=== PATIENT | male | born 1945 | race African-American/Black ===

== ENCOUNTER 2022-04-16 23:06 | Inpatient (IN) | payer MEDICARE, MEDICAID ==
[~2022-04-16] VITALS: Ht 172.7 cm; Wt 61.5 kg
[~2022-04-16 23:06] MED LIST: ASPI-1497 MT; HYDR-4009 MT
[2022-04-16] MEDS ORDERED: FUROSEMIDE 40MG/4ML VIAL IV ONE (23:15)
[2022-04-16] MEDS ORDERED: ASPIRIN 81MG TABLET PO ONE (23:15)
[2022-04-16 23:51] LABS: CHLORIDE 112 mEq/L (98-107)
[2022-04-16 23:55] LABS: HEMATOCRIT. 33.7 % (42.0-52.0); HEMOGLOBIN. 10.5 g/dL (14.0-18.0); MEAN CORPUSCULAR HEMOGLOBIN 26.4 pg (28.0-32.0); MEAN CORPUSCULAR VOLUME 84.9 fL (80.0-94.0); MEAN PLATELET VOLUME 7.1 fl (7.4-10.4); PLATELET 263 x1000/uL (130-400); RED BLOOD CELL COUNT 3.97 mill/uL (4.7-6.1); RED CELL DISTRIBUTION WIDTH 17.4 % (11.6-14.6)
[2022-04-17] VITALS (7 sets, daily range): BP systolic 121–152; BP diastolic 60–85
[2022-04-17 00:46] LABS: PLATELET ESTIMATE NORMAL
[2022-04-17] MEDS ORDERED: FUROSEMIDE 40MG/4ML VIAL IV NR (02:15)
[2022-04-17] MEDS ORDERED: ASPIRIN 81MG TABLET PO NR (02:15)
[2022-04-17] MEDS ORDERED: FUROSEMIDE 40MG/4ML VIAL IVP NR (09:30)
[2022-04-17] MEDS ORDERED: METOLAZONE 10MG TABLET PO NR (09:30)
[2022-04-17] MEDS ORDERED: ONDANSETRON HCL 4MG/2ML INJ IV PRN (09:45)
[2022-04-17] MEDS ORDERED: IPRATROPIUM/ALBUTEROL 0.5-3(2.5)MG/3ML NEB HHN PRN (09:45)
[2022-04-17] MEDS ORDERED: ACETAMINOPHEN 325MG TABLET PO PRN ×2 (09:45)
[2022-04-17] MEDS ORDERED: GUAIFENESIN 200MG/10ML SUGAR FREE UDC PO PRN (09:45)
[2022-04-17] MEDS ORDERED: DIPHENHYDRAMINE 50MG/ML VIAL IV PRN (09:45)
[2022-04-17] MEDS ORDERED: MAGNESIUM/ALUMINUM HYDROXIDE/SIMETHICONE 30ML UDC PO PRN (09:45)
[2022-04-17] MEDS ORDERED: ZOLPIDEM TARTRATE 5MG TABLET PO PRN (09:45)
[2022-04-17] MEDS ORDERED: CLONIDINE 0.1MG TABLET PO PRN (09:45)
[2022-04-17 11:13] LABS: BG BASE EXCESS -1.6 mmol/L (-2.0-2.0); BG CARBOXYHEMOGLOBIN 1.2 % (0.5-1.5); BG DEOXYHEMOGLOBIN 0.5 % (0.0-5.0); BG FRACTION INSPIRED OXYGEN 40; BG HCO3 ACT 22.7 mmol/L (22.0-26.0); BG METHEMOGLOBIN 0.3 % (0.0-1.5); BG OXYGEN SATURATION 99.5 % (92.0-98.5); BG PCO2 36.6 mmHg (35.0-45.0); BG PO2 164.5 mmHg (75.0-100.0); BG SAMPLE SITE RIGHT RADIAL; BG TOTAL HEMOGLOBIN 10.9 g/dL (12.0-18.0); BG TOTAL RESPIRATORY RATE 21 b/min; BG VENT MODE MASK - BIPAP
[2022-04-17] MEDS: SPIRONOLACTONE 25MG TABLET PO SCH (11:16)
[2022-04-17] MEDS: LOSARTAN POTASSIUM 25 MG TABLET PO SCH (13:02)
[2022-04-17] MEDS: ENOXAPARIN 40MG/0.4ML SYR SUBCUT SCH (13:06)
[2022-04-17] MEDS: SILDENAFIL CITRATE 20MG TABLET PO SCH ×2 (15:16→21:59)
[2022-04-17] MEDS: NICOTINE 14MG PATCH TD SCH (15:16)
[2022-04-17] MEDS: IPRATROPIUM/ALBUTEROL 0.5-3(2.5)MG/3ML NEB HHN SCH ×2 (17:17→20:00)
[2022-04-17] MEDS: BUDESONIDE 0.5MG/2ML NEB HHN SCH ×2 (17:17→21:06)
[2022-04-17 18:17] LABS: CLARITY URINE CLEAR (CLEAR); COLOR URINE YELLOW (YELLOW); KETONES URINE NEGATIVE (NEGATIVE); LEUKOCYTE ESTERASE URINE 3+ (NEGATIVE); NITRITE URINE NEGATIVE (NEGATIVE); OCCULT BLOOD URINE 2+ (NEGATIVE); PROTEIN URINE NEGATIVE (NEGATIVE); SPECIFIC GRAVITY URINE 1.007 (1.005-1.030); UROBILINOGEN URINE 0.2 E.U./dL (0.2-1.0)
[2022-04-17 18:33] LABS: *AMPHETAMINES SCREEN URINE NEGATIVE (NEGATIVE); *BARBITURATES SCREEN URINE NEGATIVE (NEGATIVE); *BENZODIAZEPINES SCREEN URINE NEGATIVE (NEGATIVE); *COCAINE SCREEN URINE NEGATIVE (NEGATIVE); CANNABINOID URINE SCREEN NEGATIVE (NEGATIVE); METHADONE URINE SCREEN NEGATIVE (NEGATIVE); OPIATES URINE SCREEN PRESUMTIVE POSITIVE (NEGATIVE); PHENCYCLIDINE URINE SCREEN NEGATIVE (NEGATIVE)
[2022-04-17] MEDS: CARVEDILOL 3.125 MG TABLET PO SCH (22:00)
[2022-04-17] MEDS: FAMOTIDINE 20MG TABLET PO SCH (22:00)
[2022-04-17] MEDS: SODIUM CHLORIDE 0.9% INJ 3ML FLUSH IVF SCH ×2 (22:00→22:01)
[2022-04-18] VITALS (14 sets, daily range): BP systolic 123–156; BP diastolic 68–98
[2022-04-18] MEDS: IPRATROPIUM/ALBUTEROL 0.5-3(2.5)MG/3ML NEB HHN SCH ×6 (04:48→20:37)
[2022-04-18] MEDS: SODIUM CHLORIDE 0.9% INJ 3ML FLUSH IVF SCH ×3 (06:00→21:15)
[2022-04-18] MEDS: SILDENAFIL CITRATE 20MG TABLET PO SCH ×3 (06:11→21:15)
[2022-04-18 07:57] LABS: CHLORIDE 109 mEq/L (98-107); PHOSPHORUS 3.4 mg/dL (2.5-4.9)
[2022-04-18] MEDS: FUROSEMIDE 40MG/4ML VIAL IVP SCH (09:11)
[2022-04-18] MEDS: NICOTINE 14MG PATCH TD SCH (09:12)
[2022-04-18] MEDS: CARVEDILOL 3.125 MG TABLET PO SCH ×2 (09:12→21:15)
[2022-04-18] MEDS: SPIRONOLACTONE 25MG TABLET PO SCH (09:12)
[2022-04-18] MEDS: METOLAZONE 10MG TABLET PO SCH (09:12)
[2022-04-18] MEDS: LOSARTAN POTASSIUM 25 MG TABLET PO SCH (09:12)
[2022-04-18] MEDS: ASPIRIN 81MG EC TABLET PO SCH (09:12)
[2022-04-18] MEDS ORDERED: LIDOCAINE HCL/PF 1% 10 MG/ML 5ML VIAL ONE (09:34)
[2022-04-18 09:50] LABS: HEMATOCRIT. 35.9 % (42.0-52.0); MEAN CORPUSCULAR VOLUME 85.4 fL (80.0-94.0); MEAN PLATELET VOLUME 7.2 fl (7.4-10.4); PLATELET 237 x1000/uL (130-400); RED BLOOD CELL COUNT 4.21 mill/uL (4.7-6.1); RED CELL DISTRIBUTION WIDTH 17.8 % (11.6-14.6)
[2022-04-18] MEDS ORDERED: IOHEXOL-350 100 ML BOTTLE ONE (10:10)
[2022-04-18] MEDS: ENOXAPARIN 40MG/0.4ML SYR SUBCUT SCH (11:26)
[2022-04-18] MEDS: BUDESONIDE 0.5MG/2ML NEB HHN SCH ×2 (12:41→20:38)
[2022-04-18 14:05] LABS: PLATELET ESTIMATE NORMAL
[2022-04-18] MEDS: POTASSIUM CHLORIDE 20MEQ TABLET SR PO SCH (14:08)
[2022-04-18] MEDS: FAMOTIDINE 20MG TABLET PO SCH (21:14)
[2022-04-19] VITALS (12 sets, daily range): BP systolic 105–157; BP diastolic 73–99
[2022-04-19] MEDS: IPRATROPIUM/ALBUTEROL 0.5-3(2.5)MG/3ML NEB HHN SCH ×6 (00:21→21:48)
[2022-04-19] MEDS: SODIUM CHLORIDE 0.9% INJ 3ML FLUSH IVF SCH ×3 (06:04→22:24)
[2022-04-19] MEDS: SILDENAFIL CITRATE 20MG TABLET PO SCH ×3 (06:04→22:23)
[2022-04-19] MEDS: FUROSEMIDE 40MG/4ML VIAL IVP SCH (08:16)
[2022-04-19] MEDS: CARVEDILOL 3.125 MG TABLET PO SCH ×2 (08:16→22:22)
[2022-04-19] MEDS: METOLAZONE 10MG TABLET PO SCH (08:16)
[2022-04-19] MEDS: LOSARTAN POTASSIUM 25 MG TABLET PO SCH (08:16)
[2022-04-19] MEDS: NICOTINE 14MG PATCH TD SCH (08:16)
[2022-04-19] MEDS: ASPIRIN 81MG EC TABLET PO SCH (08:17)
[2022-04-19] MEDS: SPIRONOLACTONE 25MG TABLET PO SCH (08:17)
[2022-04-19] MEDS: POTASSIUM CHLORIDE 20MEQ TABLET SR PO SCH (08:17)
[2022-04-19] MEDS: BUDESONIDE 0.5MG/2ML NEB HHN SCH ×2 (09:51→21:48)
[2022-04-19 10:15] LABS: CHLORIDE 97 mEq/L (98-107)
[2022-04-19 10:25] LABS: HEMATOCRIT 36.8 % (42.0-52.0); HEMOGLOBIN 11.6 g/dL (14.0-18.0); MEAN CORPUSCULAR HEMOGLOBIN 26.3 pg (28.0-32.0); MEAN CORPUSCULAR VOLUME 83.1 fL (80.0-94.0); PLATELET 363 x1000/uL (130-400); RED BLOOD CELL COUNT 4.42 mill/uL (4.7-6.1)
[2022-04-19] MEDS: ENOXAPARIN 40MG/0.4ML SYR SUBCUT SCH (11:20)
[2022-04-19 14:52] LABS: BG BASE EXCESS 11.4 mmol/L (-2.0-2.0); BG CARBOXYHEMOGLOBIN 1.2 % (0.5-1.5); BG DEOXYHEMOGLOBIN 17.1 % (0.0-5.0); BG FRACTION INSPIRED OXYGEN 21; BG HCO3 ACT 35.7 mmol/L (22.0-26.0); BG METHEMOGLOBIN 1.3 % (0.0-1.5); BG OXYGEN SATURATION 82.5 % (92.0-98.5); BG OXYHEMOGLOBIN 80.4 % (94.0-97.0); BG PCO2 45.3 mmHg (35.0-45.0); BG PH 7.514 (7.350-7.450); BG PO2 45.1 mmHg (75.0-100.0); BG SAMPLE SITE RIGHT RADIAL; BG TOTAL HEMOGLOBIN 12.7 g/dL (12.0-18.0); BG VENT MODE ROOM AIR
[2022-04-19] MEDS: FAMOTIDINE 20MG TABLET PO SCH (22:23)
[2022-04-20 00:01] VITALS: BP 149/91
[2022-04-20] MEDS: IPRATROPIUM/ALBUTEROL 0.5-3(2.5)MG/3ML NEB HHN SCH ×3 (01:31→08:11)
[2022-04-20 02:00] VITALS: BP 130/88
[2022-04-20 04:59] VITALS: BP 130/84
[2022-04-20] MEDS: SODIUM CHLORIDE 0.9% INJ 3ML FLUSH IVF SCH (05:47)
[2022-04-20] MEDS: SILDENAFIL CITRATE 20MG TABLET PO SCH (05:48)
[2022-04-20 06:00] VITALS: BP 102/89
[2022-04-20 08:00] VITALS: BP 130/81
[2022-04-20] MEDS: BUDESONIDE 0.5MG/2ML NEB HHN SCH (08:11)
[2022-04-20] MEDS: SPIRONOLACTONE 25MG TABLET PO SCH (09:00)
[2022-04-20] MEDS: CARVEDILOL 3.125 MG TABLET PO SCH (09:00)
[2022-04-20] MEDS: ASPIRIN 81MG EC TABLET PO SCH (09:00)
[2022-04-20] MEDS: LOSARTAN POTASSIUM 25 MG TABLET PO SCH (09:00)
[2022-04-20] MEDS: NICOTINE 14MG PATCH TD SCH (09:00)
[2022-04-20] MEDS ORDERED: FUROSEMIDE 40MG TABLET PO SCH (09:00)
[2022-04-20] MEDS: POTASSIUM CHLORIDE 20MEQ TABLET SR PO SCH (09:00)
[2022-04-20] MEDS: ENOXAPARIN 40MG/0.4ML SYR SUBCUT SCH (11:00)
[2022-04-20] MEDS: METOLAZONE 10MG TABLET PO SCH (11:16)
== END 2022-04-20 10:52 | disposition left against medical advice (07) | DRG 291 ==
LOC: ER 23:06 → MICUSO 04-17 03:40 → 3WST 04-17 17:29
PROVIDERS: ADMIT Internal Medicine; ATTEND Internal Medicine
PROC: 5A09357 Assistance with Respiratory Ventilation, Less than 24 Consecutive Hours, Continuous Positive Airway Pressure (ICD-10-PCS; 2022-04-17)
PROC: 02HV33Z Insertion of Infusion Device into Superior Vena Cava, Percutaneous Approach (ICD-10-PCS; principal; 2022-04-18)
PROC: B518ZZA Fluoroscopy of Superior Vena Cava, Guidance (ICD-10-PCS; 2022-04-18)
PROC: B548ZZA Ultrasonography of Superior Vena Cava, Guidance (ICD-10-PCS; 2022-04-18)
DX: I11.0 Hypertensive heart disease with heart failure (principal); J96.01 Acute respiratory failure with hypoxia; I50.23 Acute on chronic systolic (congestive) heart failure; J43.9 Emphysema, unspecified; I27.20 Pulmonary hypertension, unspecified; I34.0 Nonrheumatic mitral (valve) insufficiency; I36.1 Nonrheumatic tricuspid (valve) insufficiency; F17.210 Nicotine dependence, cigarettes, uncomplicated; D64.9 Anemia, unspecified; E11.9 Type 2 diabetes mellitus without complications; Z20.822 Contact with and (suspected) exposure to COVID-19; I50.82 Biventricular heart failure; I42.9 Cardiomyopathy, unspecified; Z53.29 Procedure and treatment not carried out because of patient's decision for other reasons; Z79.891 Long term (current) use of opiate analgesic; Z79.899 Other long term (current) drug therapy; Z82.49 Family history of ischemic heart disease and other diseases of the circulatory system; R91.8 Other nonspecific abnormal finding of lung field
CPT/HCPCS: 36415; 36573; 36600; 71045; 71275; 80048; 80053; 80305; 81003; 82375; 82378; 82805; 83735; 83880; 84100; 84484; 85025; 85027; 87426; 93005; 94640; 94660; 97162; 99291; A4565; C1725; J1650; J1940; J3490; J7626; Q9967; A4315

== ENCOUNTER 2022-06-13 21:28 | Emergency (ER) | payer MEDICARE, MEDICAID ==
[~2022-06-13] VITALS: Ht 170.2 cm; Wt 69.0 kg
[2022-06-13] MEDS ORDERED: ASPIRIN 81MG TABLET PO ONE (23:30)
[2022-06-13 23:52] LABS: BASOPHILS % 0.7 % (0.0-2.0); EOSINOPHILS % 0.2 % (0.0-5.0); HEMATOCRIT. 34.4 % (42.0-52.0); HEMOGLOBIN. 10.7 g/dL (14.0-18.0); LYMPHOCYTES % 40.6 % (20.0-50.0); MEAN CORPUSCULAR HEMOGLOBIN 25.6 pg (28.0-32.0); MEAN CORPUSCULAR VOLUME 82.7 fL (80.0-94.0); MEAN PLATELET VOLUME 6.9 fl (7.4-10.4); MONOCYTES % 13.2 % (2.0-8.0); NEUTROPHILS % 45.3 % (40.0-76.0); PLATELET 352 x1000/uL (130-400); RED BLOOD CELL COUNT 4.16 mill/uL (4.7-6.1); RED CELL DISTRIBUTION WIDTH 19.6 % (11.6-14.6)
[2022-06-13 23:57] LABS: CHLORIDE 108 mEq/L (98-107)
[2022-06-14] MEDS ORDERED: FUROSEMIDE 40MG TABLET PO NR (01:45)
[2022-06-14 02:38] VITALS: BP 112/78
[2022-06-14] MEDS ORDERED: SACU1TAB PO (13:47)
[2022-06-14] MEDS ORDERED: CARV6.2548 MT (13:47)
[2022-06-14] MEDS ORDERED: DAPA10TA MT (13:47)
[2022-06-14] MEDS ORDERED: FURO-151 MT (13:47)
== END 2022-06-14 02:38 | disposition home or self-care (01) ==
LOC: ER 21:28
DX: R53.1 Weakness (principal); I50.9 Heart failure, unspecified; I11.0 Hypertensive heart disease with heart failure; E11.9 Type 2 diabetes mellitus without complications; F12.10 Cannabis abuse, uncomplicated
CPT/HCPCS: 36415; 80053; 83880; 84484; 85025; 93005; 99284

== ENCOUNTER 2022-06-14 03:29 | Inpatient (IN) | payer MEDICARE, MEDICAID ==
[~2022-06-14] VITALS: Ht 167.6 cm; Wt 56.2 kg
[2022-06-14] MEDS ORDERED: ACETAMINOPHEN 325MG TABLET PO ONE (06:00)
[2022-06-14] MEDS ORDERED: FUROSEMIDE 40MG/4ML VIAL IVP ONE (06:00)
[2022-06-14 06:25] LABS: CHLORIDE 109 mEq/L (98-107)
[2022-06-14 06:26] LABS: BASOPHILS % 1.1 % (0.0-2.0); EOSINOPHILS % 0.3 % (0.0-5.0); HEMATOCRIT. 45.1 % (42.0-52.0); HEMOGLOBIN. 13.9 g/dL (14.0-18.0); LYMPHOCYTES % 42.2 % (20.0-50.0); MEAN CORPUSCULAR HEMOGLOBIN 25.4 pg (28.0-32.0); MEAN CORPUSCULAR VOLUME 82.1 fL (80.0-94.0); MEAN PLATELET VOLUME 7.2 fl (7.4-10.4); NEUTROPHILS % 43.4 % (40.0-76.0); PLATELET 331 x1000/uL (130-400); RED BLOOD CELL COUNT 5.49 mill/uL (4.7-6.1); RED CELL DISTRIBUTION WIDTH 20.2 % (11.6-14.6)
[2022-06-14] MEDS ORDERED: ONDANSETRON HCL 4MG/2ML INJ IV PRN (09:15)
[2022-06-14] MEDS ORDERED: ACETAMINOPHEN 325MG TABLET PO PRN (09:15)
[2022-06-14] MEDS ORDERED: GUAIFENESIN 200MG/10ML SUGAR FREE UDC PO PRN (09:15)
[2022-06-14] MEDS ORDERED: MAGNESIUM/ALUMINUM HYDROXIDE/SIMETHICONE 30ML UDC PO PRN (09:15)
[2022-06-14] MEDS ORDERED: DOCUSATE SODIUM 100MG CAPSULE PO PRN (09:15)
[2022-06-14] MEDS ORDERED: IPRATROPIUM/ALBUTEROL 0.5-3(2.5)MG/3ML NEB NEB PRN (09:15)
[2022-06-14] MEDS ORDERED: DIPHENHYDRAMINE 50MG/ML VIAL IV PRN (09:15)
[2022-06-14] MEDS ORDERED: NA PHOS,M-B/NA PHOS,DI-BA ENEMA 118ML PR PRN (09:15)
[2022-06-14 10:03] VITALS: BP 140/93
[2022-06-14] MEDS ORDERED: NALOXONE HCL 0.4MG/ML VIAL IV PRN (10:15)
[2022-06-14] MEDS: MORPHINE SULFATE 2 MG/ML CPJ (NOT FOR IM USE) IV PRN (10:19)
[2022-06-14] MEDS ORDERED: ENOXAPARIN 40MG/0.4ML SYR SUBCUT SCH (11:00)
[2022-06-14 12:00] VITALS: BP 140/93
[2022-06-14] MEDS ORDERED: FURO-151 MT (13:47)
[2022-06-14] MEDS ORDERED: SACU1TAB PO (13:47)
[2022-06-14] MEDS ORDERED: DAPA10TA MT (13:47)
[2022-06-14] MEDS ORDERED: CARV6.2548 MT (13:47)
[2022-06-14] MEDS ORDERED: ENOXAPARIN 30MG/0.3ML SYR SUBCUT SCH (14:45)
[2022-06-14] MEDS: NICOTINE 21MG PATCH TD SCH (15:20)
[2022-06-14 16:00] VITALS: BP 142/86
[2022-06-14 16:27] LABS: CLARITY URINE CLEAR (CLEAR); COLOR URINE YELLOW (YELLOW); KETONES URINE NEGATIVE (NEGATIVE); LEUKOCYTE ESTERASE URINE 3+ (NEGATIVE); NITRITE URINE NEGATIVE (NEGATIVE); OCCULT BLOOD URINE 1+ (NEGATIVE); PROTEIN URINE TRACE (NEGATIVE)
[2022-06-14 16:50] LABS: *AMPHETAMINES SCREEN URINE NEGATIVE (NEGATIVE); *BARBITURATES SCREEN URINE NEGATIVE (NEGATIVE); *BENZODIAZEPINES SCREEN URINE NEGATIVE (NEGATIVE); *COCAINE SCREEN URINE NEGATIVE (NEGATIVE); CANNABINOID URINE SCREEN NEGATIVE (NEGATIVE); METHADONE URINE SCREEN NEGATIVE (NEGATIVE); OPIATES URINE SCREEN PRESUMTIVE POSITIVE (NEGATIVE); PHENCYCLIDINE URINE SCREEN NEGATIVE (NEGATIVE)
[2022-06-14 20:07] VITALS: BP 151/97
[2022-06-14 23:32] VITALS: BP 145/94
[2022-06-15] MEDS: IPRATROPIUM/ALBUTEROL 0.5-3(2.5)MG/3ML NEB HHN SCH ×4 (02:57→21:26)
[2022-06-15 04:00] VITALS: BP 144/92
[2022-06-15 08:00] VITALS: BP 134/88
[2022-06-15] MEDS: NICOTINE 21MG PATCH TD SCH (08:21)
[2022-06-15] MEDS: FUROSEMIDE 40MG/4ML VIAL IV SCH (08:22)
[2022-06-15] MEDS: ASPIRIN 81MG EC TABLET PO SCH (08:22)
[2022-06-15] MEDS: SPIRONOLACTONE 25MG TABLET PO SCH (08:22)
[2022-06-15] MEDS ORDERED: ENOXAPARIN 30MG/0.3ML SYR SUBCUT SCH (09:00)
[2022-06-15] MEDS: HYDROCODONE/ACETAMINOPHEN 5/325MG TABLET PO PRN ×2 (09:07→22:21)
[2022-06-15 12:00] VITALS: BP 139/88
[2022-06-15] MEDS: CEFTRIAXONE 1,000 MG in DEXTROSE 5% WATER 50 ML IV SCH (14:17)
[2022-06-15 16:00] VITALS: BP 129/72
[2022-06-15 20:00] VITALS: BP 139/86
[2022-06-16] VITALS: BP 143/92
[2022-06-16] MEDS: HYDROCODONE/ACETAMINOPHEN 5/325MG TABLET PO PRN (02:11)
[2022-06-16] MEDS: IPRATROPIUM/ALBUTEROL 0.5-3(2.5)MG/3ML NEB HHN SCH ×3 (02:15→21:01)
[2022-06-16 04:00] VITALS: BP 141/97
[2022-06-16 06:12] LABS: BASOPHILS % 0.2 % (0.0-2.0); EOSINOPHILS % 0.2 % (0.0-5.0); HEMATOCRIT. 36.2 % (42.0-52.0); HEMOGLOBIN. 11.5 g/dL (14.0-18.0); LYMPHOCYTES % 18.7 % (20.0-50.0); MEAN CORPUSCULAR HEMOGLOBIN 26.8 pg (28.0-32.0); MEAN CORPUSCULAR VOLUME 84.5 fL (80.0-94.0); MEAN PLATELET VOLUME 7.4 fl (7.4-10.4); MONOCYTES % 8.5 % (2.0-8.0); NEUTROPHILS % 72.4 % (40.0-76.0); PLATELET 318 x1000/uL (130-400); RED BLOOD CELL COUNT 4.29 mill/uL (4.7-6.1); RED CELL DISTRIBUTION WIDTH 19.8 % (11.6-14.6)
[2022-06-16 06:29] LABS: CHLORIDE 104 mEq/L (98-107)
[2022-06-16 08:00] VITALS: BP 145/97
[2022-06-16] MEDS: SPIRONOLACTONE 25MG TABLET PO SCH (08:13)
[2022-06-16] MEDS: FUROSEMIDE 40MG/4ML VIAL IV SCH (08:13)
[2022-06-16] MEDS: ASPIRIN 81MG EC TABLET PO SCH (08:13)
[2022-06-16] MEDS: ENOXAPARIN 40MG/0.4ML SYR SUBCUT SCH (08:14)
[2022-06-16] MEDS: MORPHINE SULFATE 2 MG/ML CPJ (NOT FOR IM USE) IV PRN ×3 (08:14→20:47)
[2022-06-16] MEDS: NICOTINE 21MG PATCH TD SCH (08:14)
[2022-06-16 12:00] VITALS: BP 152/102
[2022-06-16] MEDS: CEFTRIAXONE 1,000 MG in DEXTROSE 5% WATER 50 ML IV SCH (14:10)
[2022-06-16 16:00] VITALS: BP 149/96
[2022-06-16 20:00] VITALS: BP 127/99
[2022-06-17] VITALS: BP 145/93
[2022-06-17] MEDS: IPRATROPIUM/ALBUTEROL 0.5-3(2.5)MG/3ML NEB HHN SCH ×4 (01:21→21:05)
[2022-06-17 04:00] VITALS: BP 142/95
[2022-06-17 06:48] LABS: HEMATOCRIT. 38.6 % (42.0-52.0); HEMOGLOBIN. 11.9 g/dL (14.0-18.0); MEAN CORPUSCULAR HEMOGLOBIN 26.7 pg (28.0-32.0); MEAN PLATELET VOLUME 7.6 fl (7.4-10.4); PLATELET 309 x1000/uL (130-400); RED BLOOD CELL COUNT 4.43 mill/uL (4.7-6.1); RED CELL DISTRIBUTION WIDTH 19.9 % (11.6-14.6)
[2022-06-17 07:33] LABS: CHLORIDE 99 mEq/L (98-107)
[2022-06-17 08:00] VITALS: BP 156/105
[2022-06-17] MEDS: ENOXAPARIN 40MG/0.4ML SYR SUBCUT SCH (08:33)
[2022-06-17] MEDS: FUROSEMIDE 40MG/4ML VIAL IV SCH (08:33)
[2022-06-17] MEDS: ASPIRIN 81MG EC TABLET PO SCH (08:33)
[2022-06-17] MEDS: SPIRONOLACTONE 25MG TABLET PO SCH (08:33)
[2022-06-17] MEDS: NICOTINE 21MG PATCH TD SCH (08:34)
[2022-06-17] MEDS: CLONIDINE 0.1MG TABLET PO PRN (08:35)
[2022-06-17] MEDS: MORPHINE SULFATE 2 MG/ML CPJ (NOT FOR IM USE) IV PRN ×3 (08:46→22:09)
[2022-06-17 12:00] VITALS: BP 153/102
[2022-06-17] MEDS ORDERED: AMLODIPINE 5MG TABLET PO SCH (12:00)
[2022-06-17] MEDS ORDERED: POTASSIUM CHLORIDE 20MEQ TABLET SR PO NR (12:00)
[2022-06-17] MEDS: CEFTRIAXONE 1,000 MG in DEXTROSE 5% WATER 50 ML IV SCH (15:03)
[2022-06-17 15:38] LABS: PLATELET ESTIMATE NORMAL
[2022-06-17 16:00] VITALS: BP 157/90
[2022-06-17 20:00] VITALS: BP 148/98
[2022-06-18] VITALS: BP 151/103
[2022-06-18] MEDS: CLONIDINE 0.1MG TABLET PO PRN (00:53)
[2022-06-18] MEDS: IPRATROPIUM/ALBUTEROL 0.5-3(2.5)MG/3ML NEB HHN SCH (02:11)
[2022-06-18 04:00] VITALS: BP 146/96
[2022-06-18 06:48] LABS: BASOPHILS % 0.2 % (0.0-2.0); HEMATOCRIT. 38.7 % (42.0-52.0); HEMOGLOBIN. 12.2 g/dL (14.0-18.0); LYMPHOCYTES % 19.5 % (20.0-50.0); MEAN CORPUSCULAR HEMOGLOBIN 26.4 pg (28.0-32.0); MEAN CORPUSCULAR VOLUME 83.5 fL (80.0-94.0); MEAN PLATELET VOLUME 7.7 fl (7.4-10.4); MONOCYTES % 11.4 % (2.0-8.0); NEUTROPHILS % 68.9 % (40.0-76.0); PLATELET 314 x1000/uL (130-400); RED BLOOD CELL COUNT 4.64 mill/uL (4.7-6.1); RED CELL DISTRIBUTION WIDTH 19.6 % (11.6-14.6)
[2022-06-18 07:09] LABS: CHLORIDE 101 mEq/L (98-107)
[2022-06-18 08:00] VITALS: BP 147/90
[2022-06-18 08:14] VITALS: BP 147/90
[2022-06-18] MEDS ORDERED: FUROSEMIDE 40MG TABLET PO SCH (09:00)
== END 2022-06-18 08:50 | disposition home or self-care (01) | DRG 871 ==
LOC: ER 03:29 → 8WST 08:38 → EDBEDREQTM 08:43 → EDBEDREQ 08:43 → ENRESERV 08:53
PROVIDERS: ADMIT Internal Medicine; ATTEND Internal Medicine
DX: A41.9 Sepsis, unspecified organism (principal); I50.23 Acute on chronic systolic (congestive) heart failure; J96.00 Acute respiratory failure, unspecified whether with hypoxia or hypercapnia; N39.0 Urinary tract infection, site not specified; I27.20 Pulmonary hypertension, unspecified; J44.9 Chronic obstructive pulmonary disease, unspecified; I11.0 Hypertensive heart disease with heart failure; E11.9 Type 2 diabetes mellitus without complications; I16.0 Hypertensive urgency; D64.9 Anemia, unspecified; F17.210 Nicotine dependence, cigarettes, uncomplicated; I08.3 Combined rheumatic disorders of mitral, aortic and tricuspid valves; I50.82 Biventricular heart failure; Z53.29 Procedure and treatment not carried out because of patient's decision for other reasons; N50.89 Other specified disorders of the male genital organs; M79.89 Other specified soft tissue disorders; F12.90 Cannabis use, unspecified, uncomplicated; R91.1 Solitary pulmonary nodule; Z82.49 Family history of ischemic heart disease and other diseases of the circulatory system; Z79.82 Long term (current) use of aspirin; Z71.6 Tobacco abuse counseling; Z91.19 Patient's noncompliance with other medical treatment and regimen
CPT/HCPCS: 36415; 71045; 80048; 80053; 80305; 81003; 83880; 84484; 85025; 93005; 93306; 94640; 99284; 99285; J0696; J1650; J1940; J2270; J7060

== ENCOUNTER 2022-09-30 12:31 | Inpatient (IN) | payer MEDICARE, MEDICAID ==
[~2022-09-30] VITALS: Ht 167.6 cm; Wt 62.6 kg
[~2022-09-30 12:31] MED LIST changes: +CARV6.2548 MT; +DAPA10TA MT; +FURO-151 MT; +SACU1TAB PO
[2022-09-30] MEDS ORDERED: NITROGLYCERIN 0.4MG TABLET SL SL PRN (14:15)
[2022-09-30] MEDS ORDERED: FUROSEMIDE 40MG/4ML VIAL IVP ONE (14:15)
[2022-09-30] MEDS ORDERED: PREDNISONE 20MG TABLET PO STA (14:15)
[2022-09-30 14:34] LABS: HEMATOCRIT. 27.5 % (42.0-52.0); HEMOGLOBIN. 8.5 g/dL (14.0-18.0); MEAN CORPUSCULAR HEMOGLOBIN 25.9 pg (28.0-32.0); MEAN CORPUSCULAR VOLUME 83.4 fL (80.0-94.0); MEAN PLATELET VOLUME 7.3 fl (7.4-10.4); PLATELET 177 x1000/uL (130-400); RED CELL DISTRIBUTION WIDTH 18.5 % (11.6-14.6)
[2022-09-30 14:47] LABS: CHLORIDE 105 mEq/L (98-107)
[2022-09-30 16:41] LABS: PLATELET ESTIMATE NORMAL
[2022-09-30] MEDS ORDERED: ACETAMINOPHEN 325MG TABLET PO PRN (19:30)
[2022-09-30] MEDS ORDERED: DOCUSATE SODIUM 100MG CAPSULE PO PRN (19:30)
[2022-09-30] MEDS ORDERED: GUAIFENESIN 200MG/10ML SUGAR FREE UDC PO PRN (19:30)
[2022-09-30] MEDS ORDERED: ACETAMINOPHEN 650MG SUPP PR PRN ×2 (19:30)
[2022-09-30] MEDS ORDERED: IPRATROPIUM/ALBUTEROL 0.5-3(2.5)MG/3ML NEB HHN PRN (19:30)
[2022-09-30] MEDS ORDERED: MAGNESIUM/ALUMINUM HYDROXIDE/SIMETHICONE 30ML UDC PO PRN (19:30)
[2022-09-30] MEDS ORDERED: MORPHINE SULFATE 2 MG/ML CPJ (NOT FOR IM USE) IV PRN (19:30)
[2022-09-30] MEDS ORDERED: CLONIDINE 0.1MG TABLET PO PRN (19:30)
[2022-09-30 22:00] VITALS: BP 149/95
[2022-09-30] MEDS: AMLODIPINE 10MG TABLET PO SCH (22:53)
[2022-09-30] MEDS: LISINOPRIL 5MG TABLET PO SCH (22:58)
[2022-10-01] VITALS: BP 137/89
[2022-10-01 04:00] VITALS: BP 133/86
[2022-10-01 06:37] LABS: BASOPHILS % 0.3 % (0.0-2.0); HEMATOCRIT. 26.2 % (42.0-52.0); HEMOGLOBIN. 8.2 g/dL (14.0-18.0); LYMPHOCYTES % 29.1 % (20.0-50.0); MEAN CORPUSCULAR HEMOGLOBIN 25.9 pg (28.0-32.0); MEAN CORPUSCULAR VOLUME 82.4 fL (80.0-94.0); MEAN PLATELET VOLUME 7.2 fl (7.4-10.4); MONOCYTES % 13.5 % (2.0-8.0); NEUTROPHILS % 57.1 % (40.0-76.0); PLATELET 188 x1000/uL (130-400); RED BLOOD CELL COUNT 3.18 mill/uL (4.7-6.1); RED CELL DISTRIBUTION WIDTH 18.8 % (11.6-14.6)
[2022-10-01 06:50] LABS: CHLORIDE 104 mEq/L (98-107)
[2022-10-01 07:17] LABS: CREATINE KINASE 64 IU/L (39-308); HDL CHOLESTEROL 34 mg/dL (40-59); LDL CHOLESTEROL 54 mg/dL (5-100)
[2022-10-01 08:00] VITALS: BP 134/89
[2022-10-01] MEDS: LISINOPRIL 5MG TABLET PO SCH (08:43)
[2022-10-01] MEDS: FUROSEMIDE 40MG/4ML VIAL IV SCH ×2 (08:43→18:25)
[2022-10-01] MEDS: ASPIRIN 81MG EC TABLET PO SCH (08:43)
[2022-10-01] MEDS: AMLODIPINE 10MG TABLET PO SCH (08:43)
[2022-10-01] MEDS ORDERED: POTASSIUM CHLORIDE 20MEQ/PACKET PO NR (10:00)
[2022-10-01 12:00] VITALS: BP 147/86
[2022-10-01] MEDS: SACUBITRIL/VALSARTAN 24MG/26MG TABLET PO SCH ×2 (12:28→18:25)
[2022-10-01] MEDS: SPIRONOLACTONE 25MG TABLET PO SCH (12:29)
[2022-10-01] MEDS: HYDROCODONE/ACETAMINOPHEN 5/325MG TABLET PO PRN ×2 (12:33→23:51)
[2022-10-01 16:00] VITALS: BP 120/73
[2022-10-01 20:00] VITALS: BP 117/74
[2022-10-02] VITALS: BP 112/73
[2022-10-02 04:00] VITALS: BP 130/80
[2022-10-02 08:00] VITALS: BP 122/92
[2022-10-02 08:38] LABS: BASOPHILS % 0.7 % (0.0-2.0); EOSINOPHILS % 0.3 % (0.0-5.0); HEMATOCRIT. 29.4 % (42.0-52.0); HEMOGLOBIN. 9.3 g/dL (14.0-18.0); LYMPHOCYTES % 32.7 % (20.0-50.0); MEAN CORPUSCULAR HEMOGLOBIN 26.1 pg (28.0-32.0); MEAN CORPUSCULAR VOLUME 82.7 fL (80.0-94.0); MEAN PLATELET VOLUME 6.9 fl (7.4-10.4); MONOCYTES % 14.2 % (2.0-8.0); NEUTROPHILS % 52.1 % (40.0-76.0); PLATELET 193 x1000/uL (130-400); RED BLOOD CELL COUNT 3.56 mill/uL (4.7-6.1); RED CELL DISTRIBUTION WIDTH 18.7 % (11.6-14.6)
[2022-10-02 09:06] LABS: CHLORIDE 105 mEq/L (98-107)
[2022-10-02] MEDS ORDERED: POTASSIUM CHLORIDE 20MEQ/PACKET PO NR (09:30)
[2022-10-02] MEDS: FUROSEMIDE 40MG/4ML VIAL IV SCH ×2 (09:57→17:55)
[2022-10-02] MEDS: SACUBITRIL/VALSARTAN 24MG/26MG TABLET PO SCH ×2 (09:57→17:56)
[2022-10-02] MEDS: AMLODIPINE 10MG TABLET PO SCH (09:57)
[2022-10-02] MEDS: SPIRONOLACTONE 25MG TABLET PO SCH (09:57)
[2022-10-02] MEDS: ASPIRIN 81MG EC TABLET PO SCH (09:57)
[2022-10-02 12:00] VITALS: BP 131/80
[2022-10-02] MEDS: ACETAMINOPHEN 325MG TABLET PO PRN ×2 (14:30→17:54)
[2022-10-02 16:00] VITALS: BP 133/80
[2022-10-02] MEDS: HYDROCODONE/ACETAMINOPHEN 5/325MG TABLET PO PRN (17:55)
[2022-10-02 20:00] VITALS: BP 123/79
[2022-10-03] VITALS: BP 128/76
[2022-10-03 04:00] VITALS: BP 133/75
[2022-10-03] MEDS: HYDROCODONE/ACETAMINOPHEN 5/325MG TABLET PO PRN (05:45)
[2022-10-03 07:14] LABS: HEMATOCRIT. 30.5 % (42.0-52.0); HEMOGLOBIN. 9.6 g/dL (14.0-18.0); MEAN CORPUSCULAR HEMOGLOBIN 25.7 pg (28.0-32.0); MEAN CORPUSCULAR VOLUME 81.6 fL (80.0-94.0); MEAN PLATELET VOLUME 7.2 fl (7.4-10.4); PLATELET 224 x1000/uL (130-400); RED BLOOD CELL COUNT 3.74 mill/uL (4.7-6.1); RED CELL DISTRIBUTION WIDTH 18.7 % (11.6-14.6)
[2022-10-03 08:28] VITALS: BP 148/94
[2022-10-03] MEDS: FUROSEMIDE 40MG/4ML VIAL IV SCH (08:54)
[2022-10-03] MEDS: SACUBITRIL/VALSARTAN 24MG/26MG TABLET PO SCH (08:55)
[2022-10-03] MEDS: SPIRONOLACTONE 25MG TABLET PO SCH (08:55)
[2022-10-03] MEDS: ASPIRIN 81MG EC TABLET PO SCH (08:55)
[2022-10-03] MEDS: AMLODIPINE 10MG TABLET PO SCH (08:55)
[2022-10-03 09:42] LABS: CHLORIDE 103 mEq/L (98-107)
[2022-10-03 10:43] LABS: NUCLEATED RED BLOOD CELLS 1 /100 WBC
[2022-10-03 10:45] LABS: PLATELET ESTIMATE NORMAL
[2022-10-03] MEDS ORDERED: NALOXONE HCL 0.4MG/ML VIAL IV PRN (11:30)
[2022-10-03] MEDS ORDERED: SPIR25TA PO (11:42)
[2022-10-03 11:55] VITALS: BP 139/98
[2022-10-03 12:00] VITALS: BP 139/98
[2022-10-03] MEDS ORDERED: POTASSIUM CHLORIDE 20MEQ/PACKET PO SCH (13:00)
== END 2022-10-03 12:35 | disposition home or self-care (01) | DRG 291 ==
LOC: ER 12:51 → 3WST 18:12 → EDBEDREQTM 18:14 → EDBEDREQ 18:14
PROVIDERS: ADMIT Family Medicine Adult Medicine; ATTEND Family Medicine Adult Medicine
PROC: 02HV33Z Insertion of Infusion Device into Superior Vena Cava, Percutaneous Approach (ICD-10-PCS; principal; 2022-10-01)
PROC: B548ZZA Ultrasonography of Superior Vena Cava, Guidance (ICD-10-PCS; 2022-10-01)
DX: I11.0 Hypertensive heart disease with heart failure (principal); I50.23 Acute on chronic systolic (congestive) heart failure; J96.01 Acute respiratory failure with hypoxia; E44.1 Mild protein-calorie malnutrition; I42.9 Cardiomyopathy, unspecified; D64.9 Anemia, unspecified; E11.9 Type 2 diabetes mellitus without complications; E78.5 Hyperlipidemia, unspecified; E87.6 Hypokalemia; F17.210 Nicotine dependence, cigarettes, uncomplicated; I27.20 Pulmonary hypertension, unspecified; J43.9 Emphysema, unspecified; I08.3 Combined rheumatic disorders of mitral, aortic and tricuspid valves; Z68.22 Body mass index [BMI] 22.0-22.9, adult; Z79.899 Other long term (current) drug therapy; Z79.82 Long term (current) use of aspirin
CPT/HCPCS: 36415; 36573; 71045; 80048; 80053; 80061; 82550; 83735; 83880; 84443; 84484; 85025; 87426; 93005; 93306; 93970; 97162; 97165; 99285; C1725; C9803; J1940; J2270; J7512